=== PATIENT | male | born 1980 | race Caucasian/White ===

== ENCOUNTER 2025-06-30 20:03 | Emergency (ER) | payer OTHER, SELFPAY ==
[2025-06-30 20:16] VITALS: BP 130/82; PULSE 80; RESP 20; TEMP 36.2; O2SAT 98; BMI 25.8
--- NOTE | 2025-06-30 20:27 | CRLHL7_ITS ---
For Patients: As a result of the Cures Act, medical imaging exams and procedure reports are released immediately into your electronic medical record. You may view this report before your referring provider. If you have questions, please contact your health care provider. INDICATION: Injury. TECHNIQUE: Right hand 5th digit three views. COMPARISON: None. FINDINGS: Comminuted fracture in the tuft of the distal 5th phalanx with ventral displacement and overlap of the distal fracture fragment. No other osseous abnormality. No radiopaque foreign body evident. IMPRESSION: Distal 5th phalanx fracture. Dictated by Armando Muñoz MD @ 06/30/2025 8:41:52 PM (Electronically Signed)
--- NOTE | 2025-06-30 20:34 | ED_ITS ---
HPI - General Adult General Chief complaint: Extremity Pain/Injury, Upper Stated complaint: cut or smushed right hand pinky finger Time Seen by Provider: 06/30/25 20:24 History of Present Illness HPI narrative: Patient is a 45-year-old gentleman who was working outside [employer] with gloves on when he pinched his right of it it 5th digit. He split his distal digit and initially dislocated is nail bed which he was able put back into place. He has a skin tear over the distal aspect of the 5th digit which includes the tip but does not reach the D IP. He has good sensation minimal swelling and bleeding is controlled. He is not up-to-date on his tetanus shot and has no other injuries. Related Data Home Medications ?Medication ?Instructions ?Recorded ?Confirmed No Known Home Medications 06/30/2506/14 Allergies Allergy/AdvReac Type Severity Reaction Status Date / Time No Known Drug Allergies Allergy Verified 06/30/25 20:20 Review of Systems Status of ROS: Reports: 10 or more systems reviewed and unremarkable except as noted in History and below Exam Narrative: Exam Narrative: EXAM GENERAL: Patient appears comfortable and well. EYES: No scleral icterus. LYMPH: No supraclavicular or cervical lymphadenopathy. SKIN: Visible skin seen during exam normal or with benign process only. EXT: Swelling ecchymosis and skin tear as described above 5th digit right upper extremity primarily palmar surface. HEART: Regular rate and rhythm with no murmurs, rubs, or gallops. LUNGS: Clear to auscultation bilaterally with no crackles or wheezes. ABD: Soft, non tender, non distended. PSYCH: Good eye contact, speech is not pressured. Const: Vital Signs, click to edit/add: Vital Signs - 24 hr 06/30/25 20:16 Temperature 97.2 F L Pulse Rate [Left P ulse Oximeter] 80 Respiratory Rate 20 Blood Pressure [Ri ght Upper Arm] 130/82 Pulse Oximetry 98 Oxygen Delivery Me thod Room Air Course Course ED Course: Patient seen and examined. X-ray shows a avulsion fracture of the tip of the d igit. He will have aggressive cleaning of the wound and we will reassess. TD AP updated. Vital Signs Vital signs: Initial Vital Signs Temperature 97.2 F L 06/30/25 20:16 Temperature Source Temporal Artery Scan 06/30/25 20:16 Pulse Rate 80 06/30/25 20:16 Respiratory Rate 20 06/30/25 20:16 Blood Pressure 130/82 06/30/25 20:16 Blood Pressure Mean 98 06/30/25 20:16 Blood Pressure Position Sitting 06/30/25 20:16 Pulse Oximetry 98 06/30/25 20:16 Oxygen Delivery Method Room Air 06/30/25 20:16 Vital Signs Temperature 97.2 F L 06/30/25 20:16 Pulse Rate 80 06/30/25 20:16 Respiratory Rate 20 06/30/25 20:16 Blood Pressure 130/82 06/30/25 20:16 Pulse Oximetry 98 06/30/25 20:16 Oxygen Delivery Method Room Air 06/30/25 20:16 Temperature 97.2 F L 06/30/25 20:16 Pulse Rate 80 06/30/25 20:16 Respiratory Rate 20 06/30/25 20:16 Blood Pressure 130/82 06/30/25 20:16 Pulse Oximetry 98 06/30/25 20:16 Oxygen Delivery Method Room Air 06/30/25 20:16 Medical Decision Making MDM Narrative Medical decision making narrative: Patient presented for crushing is distal 5th digit right upper extremity while it was gloved. I did irrigate the wound and found that the tissue was well- approximated. At this time we did update his tetanus shot and we did placement and tube gauze. He will keep a tube gauze in place until approximately 6 days from now at which time he I will see him back in clinic change the dressing and discussed next steps for care. I did place him on Augmentin 875 b.i.d. for 7 days as well. Lab Data Labs: Lab Results 06/30/25 Range/Units 20:45 APTT Cancelled Sodium Cancelled Potassium Cancelled Chloride Cancelled Carbon Dioxide Cancelled Anion Gap Cancelled BUN Cancelled Creatinine Cancelled Estimated Creat Clear Cancelled Estimated GFR Cancelled Glucose Cancelled Calcium Cancelled Total Bilirubin Cancelled AST Cancelled ALT Cancelled Alkaline Phosphatase Cancelled Troponin I Cancelled Total Protein Cancelled Albumin Cancelled Procalcitonin Cancelled Discharge Plan Discharge Clinical Impression: Finger fracture Patient Disposition: Home, Self-Care Condition: Stable Instructions: Finger Fracture (ED) Additional Instructions: Keep dressing on and dry Augmentin twice daily Tylenol Motrin Ice Follow-up Dr. Segovia at 1:30 p.m. Activity Level: No Restrictions Discharge Diet: Regular Prescriptions: No Action No Known Home Medications Follow Up/Referrals: Provider,Not a Local [Primary Care Provider, Family Practice] Stand Alone Forms: [employer] Info Instructions
[2025-06-30] MEDS: TETANUS/DIPHTH/PERTUSSIS 0.5 ML SYRINGE IM (22:43)
== END 2025-06-30 22:59 | disposition home or self-care (01) ==
PROVIDERS: Emergency Provider Internal Medicine
DX: S62.636A Displaced fracture of distal phalanx of right little finger, initial encounter for closed fracture (principal); Z23 Encounter for immunization; W23.0XXA Caught, crushed, jammed, or pinched between moving objects, initial encounter
CPT/HCPCS: 36415; 73140; 80053; 84145; 84484; 85730; 86850; 86900; 86901; 90471; 90715; 99283